=== PATIENT | female | born 1995 | race Two or more races ===

== ENCOUNTER 2023-02-22 08:46 | Emergency (ER) | payer MEDICAID ==
[~2023-02-22] VITALS: Ht 170.2 cm; Wt 99.8 kg
[2023-02-22 10:00] LABS: Basophils # (auto) 0 10 ^3/uL (0-0.2); Basophils % (auto) 0.4 % (0.0-2.0); Eosinophils # (auto) 0.1 10 ^3/uL (0-0.8); Eosinophils % (auto) 0.7 % (0.0-7.0); Hematocrit 36.9 % (36.0-46.0); Hemoglobin 12.6 g/dL (12.2-16.2); Lymphocytes # (auto) 1.7 10 ^3/uL (0.4-5.4); Lymphocytes % (auto) 18.5 % (10.0-50.0); Mean Corpuscular Hemoglobin 30.3 pg (28.0-32.0); Mean Corpuscular Hgb Conc. 34.3 g/dL (32.0-36.0); Mean Corpuscular Volume 88.3 fL (80.0-100.0); Monocytes # (auto) 0.3 10 ^3/uL (0-1.3); Monocytes % (auto) 3.5 % (0.0-12.0); Neutrophils % (auto) 76.9 % (37.0-80.0); Nucleated Red Blood Cells % 0.1 %; Red Blood Cells 4.18 10^6/uL (4.0-5.20); Red Cell Distribution Width 13.6 % (11.8-14.3); White Blood Cell 9.1 10^3/uL (4.4-10.8)
[2023-02-22 10:16] LABS: Alanine Aminotransferase 14 U/L (7-40); Albumin 3.8 g/dL (3.2-4.8); Alkaline Phosphatase 49 U/L (46-116); Anion Gap 7 (5-15); Aspartate Aminotransferase 18 U/L (13-40); Bilirubin, Total 0.5 mg/dL (0.2-1.0); Calcium 8.5 mg/dL (8.5-10.1); Carbon Dioxide 24 mmol/L (20-30); Chloride 104 mmol/L (98-107); Glucose 99 mg/dL (74-106); Potassium 3.9 mmol/L (3.5-5.1); Sodium 135 mmol/L (136-145); Total Protein 6.3 g/dL (5.7-8.2)
[2023-02-22 10:26] LABS: BUN/Creatinine Ratio 8.6 (10.0-20.0); Blood Urea Nitrogen < 5 mg/dL (9-23)
[2023-02-22 10:31] LABS: Lipase 43 U/L (12-53); Magnesium 1.9 mg/dL (1.6-2.6)
[2023-02-22 13:00] VITALS: BP 134/55; PULSE 64; RESP 18; TEMP 98; O2SAT 97
== END 2023-02-22 13:05 | disposition home or self-care (01) ==
LOC: ER 08:46
DX: O26.892 Other specified pregnancy related conditions, second trimester (principal); R55 Syncope and collapse; E03.9 Hypothyroidism, unspecified; Z3A.18 18 weeks gestation of pregnancy; Z98.890 Other specified postprocedural states; Z88.0 Allergy status to penicillin
CPT/HCPCS: 36415; 70450; 80053; 83690; 83735; 85025; 93005

== ENCOUNTER 2023-07-01 09:15 | Inpatient (IN) | payer MEDICAID ==
[~2023-07-01] VITALS: Ht 170.2 cm; Wt 107.0 kg
[2023-07-01] MEDS ORDERED: LIDOCAINE 2%HCL (LOCAL ANESTH.) INJ 20ML MDV IJ PRN (09:30)
[2023-07-01] MEDS ORDERED: miSOPROStol 100 mcg TAB SL PRN (09:30)
[2023-07-01] MEDS ORDERED: BUTORPHANOL TARTRATE 2 MG/1 ML VIAL IV PRN ×2 (09:30)
[2023-07-01] MEDS: CARBOPROST TROMETHAMINE 250 MCG/1ML VIAL IM ONE (09:30)
[2023-07-01] MEDS: LACTATED RINGER'S 1,000 ML IV SCH (09:30)
[2023-07-01] MEDS ORDERED: PROMETHAZINE HCL 25 MG/ML 1ML IV PRN (09:30)
[2023-07-01] MEDS ORDERED: miSOPROStol 100 mcg TAB PR PRN (09:30)
[2023-07-01] MEDS: LIDOCAINE 2%HCL (LOCAL ANESTH.) INJ 10ml MDV ONE (09:32)
[2023-07-01] MEDS: PHISODERM TOP SOLN 240ML BTL TOP ONE (09:32)
[2023-07-01] MEDS: DERMOPLAST 60ML BOTTLE TOP ONE (09:32)
[2023-07-01] MEDS: WITCH HAZEL-GLYCERIN PAD TOP ONE (09:32)
[2023-07-01] MEDS: LACT. RINGERS/OXYTOCIN 20UNITS 1,000 ML IV ONE (09:33)
[2023-07-01] MEDS: METHYLERGONOVINE MALEATE 0.2 MG/ML AMP IM PRN (10:10)
[2023-07-01 10:12] LABS: Basophils # (auto) 0 10 ^3/uL (0-0.2); Basophils % (auto) 0.3 % (0.0-2.0); Eosinophils # (auto) 0.1 10 ^3/uL (0-0.8); Eosinophils % (auto) 0.9 % (0.0-7.0); Hematocrit 36.7 % (36.0-46.0); Hemoglobin 12.1 g/dL (12.2-16.2); Lymphocytes # (auto) 2.4 10 ^3/uL (0.4-5.4); Lymphocytes % (auto) 26.4 % (10.0-50.0); Mean Corpuscular Hemoglobin 28.7 pg (28.0-32.0); Monocytes # (auto) 0.5 10 ^3/uL (0-1.3); Monocytes % (auto) 5.5 % (0.0-12.0); Neutrophils # (auto) 6.1 10 ^3/uL (1.6-8.6); Neutrophils % (auto) 66.9 % (37.0-80.0); Red Blood Cells 4.22 10^6/uL (4.0-5.20); Red Cell Distribution Width 14.1 % (11.8-14.3); White Blood Cell 9.1 10^3/uL (4.4-10.8)
[2023-07-01] MEDS: LACT. RINGERS/OXYTOCIN 20UNITS 500 ML IV ONE ×2 (10:15)
[2023-07-01] MEDS: DERMOPLAST 60ML BOTTLE TOP PRN (10:16)
[2023-07-01] MEDS: WITCH HAZEL-GLYCERIN PAD TOP PRN (10:16)
[2023-07-01] MEDS: PHISODERM TOP SOLN 240ML BTL TOP PRN (10:16)
[2023-07-01 10:34] LABS: Alanine Aminotransferase 13 U/L (7-40); Albumin 3.9 g/dL (3.2-4.8); Alkaline Phosphatase 103 U/L (46-116); Anion Gap 7 (5-15); Aspartate Aminotransferase 17 U/L (13-40); BUN/Creatinine Ratio 8.2 (10.0-20.0); Bilirubin, Total 0.6 mg/dL (0.2-1.0); Blood Urea Nitrogen 5 mg/dL (9-23); Calcium 8.9 mg/dL (8.5-10.1); Carbon Dioxide 21 mmol/L (20-30); Chloride 108 mmol/L (98-107); Glucose 98 mg/dL (74-106); Potassium 3.3 mmol/L (3.5-5.1); Sodium 136 mmol/L (136-145); Total Protein 6.1 g/dL (5.7-8.2)
[2023-07-01 10:41] LABS: Urine Bacteria NONE SEEN /hpf (None Seen); Urine Blood Negative /uL (Negative); Urine Clarity Clear (Clear); Urine Color Yellow (Yellow); Urine Protein, UAD TRACE (Negative); Urine Urobilinogen Normal (Negative); Urine WBC 1 /hpf (0 - 5)
[2023-07-01 10:48] LABS: Amphetamine Screen, Urine Neg (NEGATIVE)
[2023-07-01 10:49] LABS: Barbiturate Scree,Urine Neg (NEGATIVE); Benzodiazephine Screen, Urine Neg (NEGATIVE); Cannabinoid Screen, Urine Neg (NEGATIVE); Cocaine Screen, Urine Neg (NEGATIVE); Opiate Scree,Urine Neg (NEGATIVE); Phencyclidine Screen, Urine Neg (NEGATIVE)
[2023-07-01 10:59] LABS: INR 0.97 (0.9-1.15); Partial Thromboplastin Time 25.4 SEC (24.5-34.5); Prothrombin Time 10.2 sec (9.3-11.8)
[2023-07-01] MEDS ORDERED: ACETAMINOPHEN 325 MG TAB PO PRN (11:00)
[2023-07-01] MEDS: POTASSIUM CHL 20 Meq TABLET PO ONE (12:53)
[2023-07-01] MEDS: CLINDAMYCIN 900MG IV 50 ML IV SCH (14:56)
[2023-07-01] MEDS: IBUPROFEN 600 MG TAB PO PRN (14:56)
[2023-07-01 15:06] VITALS: BP 138/80; PULSE 66; RESP 17; TEMP 98.6; O2SAT 100
[2023-07-01 19:20] VITALS: BP 136/70; PULSE 71; RESP 14; TEMP 97.8; O2SAT 97
[2023-07-01 23:00] VITALS: BP 113/59; PULSE 58; RESP 16; TEMP 98.1; O2SAT 96
[2023-07-02 03:00] VITALS: BP 112/60; PULSE 54; RESP 16; TEMP 98.2; O2SAT 95
[2023-07-02] MEDS: TETANUS-DIPTH-ACEL PERTUSSIS 0.5ML SYR Tdap IM ONE (04:32)
[2023-07-02 07:00] VITALS: BP 141/67; PULSE 70; RESP 16; TEMP 98; O2SAT 98
[2023-07-03 08:06] LABS: RPR Non Reactive (Non Reactive)
[2023-07-03 11:06] LABS: Rubella Antibodies, IgG 5.12 index (Immune >0.99)
== END 2023-07-02 09:16 | disposition home or self-care (01) | DRG 560 ==
LOC: LDRP 09:15
PROVIDERS: ADMIT Obstetrics & Gynecology; ATTEND Obstetrics & Gynecology
PROC: 10E0XZZ Delivery of Products of Conception, External Approach (ICD-10-PCS; principal; 2023-07-01)
PROC: 0HQ9XZZ Repair Perineum Skin, External Approach (ICD-10-PCS; 2023-07-01)
DX: O60.23X0 Term delivery with preterm labor, third trimester, not applicable or unspecified (principal); Z37.0 Single live birth; E04.1 Nontoxic single thyroid nodule; O99.284 Endocrine, nutritional and metabolic diseases complicating childbirth; O99.214 Obesity complicating childbirth; E66.01 Morbid (severe) obesity due to excess calories; O70.0 First degree perineal laceration during delivery; Z88.0 Allergy status to penicillin; Z3A.36 36 weeks gestation of pregnancy
CPT/HCPCS: 36415; 59025; 59409; 80053; 80307; 81001; 85025; 85610; 85730; 86592; 86703; 86762; 86850; 86900; 86901; 90715; 94760; 96360; 96365; 96366; 96372; G0378; J2001; J2590; J3490